=== PATIENT | male | born 1940 | race American Indian/Alaskan Native ===

== ENCOUNTER 2017-09-10 10:11 | Emergency (ER) | payer MEDICARE ==
[2017-09-10] MEDS ORDERED: NACL 0.9% 1000 ML 1,000 ML ONE (10:17)
--- NOTE | 2017-09-10 11:37 | Emergency Department Report ---
ED CPR HPI - General Stated Complaint: SOB Time Seen by Provider: 09/10/17 11:31 Source: family, EMS - History of Present Illness Initial Comments: Patient is a 77-year-old [place] male whose presenting a cardiac arrest. Patient's girlfriend states that this morning he got up to go to the bathroom and then she heard that he had fallen. Patient was initially alert and on but did not know where he was whether he did fall and patient's toes girlfriend he did not want EMS called and then patient was noted to have slumped over and lost consciousness. EMS on their arrival patient was in PEA initially bradycardic and then tachycardic when they were close to arrival with no palpable palpable. Patient was intubated in the field with endotracheal tube. Patient received 4 rounds of epinephrine and bicarbonate. There is minimal approximately 20 minutes of ACLS performed MD Complaint: found unresponsive Place: home Shock Advised: No Initial Findings in the Field: unresponsive, no respirations, no pulse, PEA ED Review of Systems ROS: Stated complaint: SOB Other details as noted in HPI Comment: Unobtainable due to pts medical conditions ED Physical Exam - General General appearance: obtunded - Head Head exam: Present: atraumatic, normocephalic - Eye Eye exam: Present: other (December 01 and dilated) - Neck Neck exam: Present: normal inspection - Respiratory Respiratory exam: Present: other (no spontaneous respiration) - Cardiovascular Cardiovascular Exam: Present: other (no spontaneous heart tones) - GI/Abdominal GI/Abdominal exam: Present: soft, distended - Extremities Exam Extremities exam: Present: normal inspection - Skin Skin exam: Present: warm, dry, normal color - Central Line Placement Left Femoral Consent Obtained: emergent situation MD Prep: mask, gown, gloves Central Line Prep: Chlorhexidine scrub Ultrasound Used for Placement: No Central Line Lumen Inserted: triple Central Line Position: good blood return, all ports aspirated, flus, sutured in place with 2-0 Dressing Applied: Tegaderm Complications: arterial puncture/cannula ED Medical Decision Making - Medical Decision Making Please see nurse's documentation regarding the code. Patient had return of spontaneous circulation several times but then would revert back into a PEA. After approximately one hour of total down time it was determined that we would stop resuscitative efforts. At the time. The patient had no pulse and was showing bradycardia. Ultrasound was used to check for cardiac activity and there was no organized activity present. Family was notified of the patient' s Critical care attestation.: If time is entered above; I have spent that time in minutes in the direct care of this critically ill patient, excluding procedure time. ED Disposition Clinical Impression: Cardiopulmonary arrest Disposition: DC-20 Is pt being admited?: No Does the pt Need Aspirin: No Condition: Stable Referrals: PRIMARY CARE, [Primary Care Provider] - 3-5 Days
[2017-09-10 14:10] VITALS: BP 66/41
[2017-09-10] MEDS ORDERED: SODIUM BICARBONATE IV ONE (14:20)
[2017-09-10] MEDS ORDERED: ADRENALIN ONE (14:20)
[2017-09-10] MEDS ORDERED: ATROPINE 0.1% (CARDIAC) ONE (14:20)
== END 2017-09-10 13:25 ==
LOC: ED 10:11
DX: I46.9 Cardiac arrest, cause unspecified (principal)
CPT/HCPCS: 36556; 92950; 99285; J0171; J0461; J7030; 94002